=== PATIENT | female | born 1945 | race Caucasian/White ===

== ENCOUNTER → 2016-06-07 | Day surgery (SDC) | payer MEDICARE, OTHER ==
[~2016-06-07] VITALS: Ht 167.6 cm; Wt 60.0 kg
[~2016-06-07] MED LIST: *diphenhydrAMINE HCL 50 MG/ML VIAL PERIprocedural Use ONLY ONE; *morphine SULFATE 8 MG/ML PERIprocedure ONLY ONE; ACETAMINOPHEN 500 MG CPLT PO PRN; ATOR10TA PO; ATOR10TA15 PO; ATROPINE SULFATE 1% OPHT SOLN 2 ML BTL ONE; BALANCED SALT SOLN OPHT IRRIG 15 ML BTL ONE; CHLORHEXIDINE GLUCONATE 2 % 1 PACK (2 CLOTHS) TOPICAL PRN; CYCLOPENTOLATE HCL 1% OPHT SOLN 2 ML BTL ONE; CYMB30CA PO; CYMB60CA PO; DEXAMETHASONE SOD PHOS 4 MG/ML VIAL ONE; DO NOT ADM ANY ANTICOAGULANT DRUGS PRN; EPINEPHrine HCL (1:1000) 1 MG/ML VIAL ONE; ESTR.3 PO; HYDR-3516 PO; HYDR10SO PO; INSULIN HUMAN REGULAR 1,000 UNITS/10 ML VIAL SQ PRN; LACTATED RINGER'S 1000 ML IV PRN; LOMO PO; LOMO2.5T PO; METOPROLOL TARTRATE 25 MG TAB PO PRN; MULTTAB67 PO; ONDANSETRON HCL 4 MG/2 ML VIAL IM PRN; ONDANSETRON HCL 4 MG/2 ML VIAL IV PUSH ONE; PHENYLEPHRINE HCL 2.5% OPTH SOLN 2 ML BTL ONE; POVIDONE IODINE 5% (ANTISEPSIS KIT) 4 APPLICATIONS EACH NARE PRN; PREM1.25 PO; PROPOFOL 200 MG/20 ML AMP IV ONE; SODIUM CHLORID 0.9% 500 ML IV PRN; STERILE WATER FOR INJ 20 ML VIAL ONE; TAB-TAB PO; TOBRAMYCIN/DEXAMETHASONE OPTH OINT 3.5 GM TUBE ONE; TRIAMCINOLONE ACETONIDE/PF 40 MG/ML OPTH VIAL ONE; TROPICAMIDE 1% OPHT SOLN 15 ML BTL ONE; ceFAZolin INJ 1,000 MG VIAL ONE; ePHEDrine/NS 25 MG/5 ML SYR IV ONE; oxyCODONE/ACETAMINOPHEN 5 MG/325 MG TAB PO PRN
[2016-06-07 11:59] VITALS: BP 152/73; PULSE 60; RESP 20; TEMP 98.2; O2SAT 99
[2016-06-07 12:04] LABS: AUTOMATED NEUTROPHIL # 4.1 TH/MM3 (1.8-7.7); BASOPHIL # 0.1 TH/MM3 (0-0.2); EOSINOPHIL # 0.1 TH/MM3 (0-0.4); EOSINOPHIL % 1.5 % (0.0-4.0); HEMATOCRIT 38.5 % (35.0-46.0); HEMO FLAGS DIFF FINAL; LYMPHOCYTE # 1.2 TH/MM3 (1.0-4.8); MEAN CELL VOLUME 91.9 FL (80.0-100.0); MEAN CORPUSCULAR HEMOGLOBIN 31.5 PG (27.0-34.0); MEAN CORPUSCULAR HGB CONC 34.2 % (32.0-36.0); MONO % 10.9 % (0.0-8.0); NEUT % 66.6 % (16.0-70.0); PLATELET COUNT 329 TH/MM3 (150-450); RED BLOOD COUNT 4.19 MIL/MM3 (4.00-5.30); RED CELL DISTRIBUTION WIDTH 13.6 % (11.6-17.2); WHITE BLOOD COUNT 6.2 TH/MM3 (4.0-11.0)
[2016-06-07] MEDS: CYCLOPENTOLATE HCL 1% OPHT SOLN 2 ML BTL RIGHT EYE SCH ×3 (12:16→12:45)
[2016-06-07] MEDS: PHENYLEPHRINE HCL 2.5% OPTH SOLN 2 ML BTL RIGHT EYE SCH ×2 (12:30→12:45)
[2016-06-07] MEDS: TROPICAMIDE 1% OPTH SOLN 2 ML BTL RIGHT EYE SCH ×2 (12:30→12:45)
[2016-06-07] MEDS: ATROPINE SULFATE 1% OPHT SOLN 5 ML BTL RIGHT EYE SCH ×2 (12:30→12:45)
[2016-06-07 16:30] VITALS: BP 149/77; PULSE 59; RESP 16; TEMP 98.3; O2SAT 96
--- NOTE | 2016-06-08 16:22 | EKG ---
Date Performed: 06/07/2016 Time Performed: 11:57:24 PTAGE: 70 years EKG: SINUS BRADYCARDIA POSSIBLE LEFT ATRIAL ENLARGEMENT SEPTAL MYOCARDIAL INFARCTION , OF INDETE RMINATE AGE MODERATE T-WAVE ABNORMALITY, CONSIDER LATERAL ISCHEMIA ABNORMAL ECG PREVIOUS TRACING : 12/02/2014 11.06 DOCTOR: Yudith Giron Interpretating Date/Time 06/08/2016 16:19:54
--- NOTE | 2016-06-12 11:34 | MP ---
cc: SAMUEL WYATT M.D. DATE OF SURGERY: 06/07/2016 PREOPERATIVE DIAGNOSIS Vitreous opacity, some retained Perfluoron liquid, right eye. POSTOPERATIVE DIAGNOSIS Vitreous opacity, some retained Perfluoron liquid, right eye. PROCEDURE Trans pars plana vitrectomy with scatter PRP in the periphery and air-fluid exchange, right eye. SURGEON Dr. Samuel Wyatt ANESTHESIA General laryngeal mask anesthesia. INDICATION Ms. Mcbride is a 70-year-old woman who underwent a retinal detachment repair back in November 2014. Unfortunately a small amount of Perfluoron liquid was left in the eye due to poor visualization during the air-fluid exchange. She initially wanted to wait and see how this affected her vision. She came in this week saying she was ready to have the bubbles removed in her right eye. The risks and benefits of surgery were discussed with the patient. Informed consent was obtained. DETAILS OF PROCEDURE She was brought to [facility] Operating Room-1 and placed on the operating table. Appropriate anesthesia monitoring devices were applied and she was placed under general anesthesia using a laryngeal mask. The right eye was identified as the operative site and then prepped and draped in the usual and sterile fashion. A lid speculum was placed. At this point an appropriate timeout was called with the surgical team agreeing to the planned surgical procedure and surgical site. Using the Christiano 23-gauge vitrectomy system the trocar cannulas were placed 3.5 mm posterior to the limbus after first displacing the conjunctiva. The first one was placed at approximately the 8:45 position and verified to be in the posterior chamber. An infusion cannula was affixed to it and it was turned on. Two additional trocar cannulas were placed at 10 and 2 o'clock. Using a soft-tip linear extrusion needle the Perfluoron bubbles which were currently in the posterior pole when the patient was in the supine position were vacuumed off. Plugs were placed back in the eye and additional scatter PRP was put around the periphery as a precautionary measure. A total of 948 laser spots were delivered with the indirect delivery system with a power of 400 milliwatts and 0.15 second exposure. Partial air-fluid exchange was then done after which the trocar cannulas were removed one by one. A single 7-0 Vicryl suture was used on the superonasal port where it appeared to be leaking some air. The lid speculum was removed. Atropine drops were placed on the cornea. Subconjunctival injections of Ancef 125 mg in 0.5 cc and Decadron 2 mg in 0.5 cc were given at separate sites. The patient was undraped. TobraDex ointment was placed on the cornea and the right eye was patched and shielded. The patient had the laryngeal mass removed in the room and was returned to Recovery in good condition laying on her left side. When awake and alert she can assume a head up position. MD ANAND Dias/LANEY /2:26 PM /11:23 AM
== END | disposition home or self-care (01) ==
LOC: HSDC 10:58
PROVIDERS: ATTEND Ophthalmology
DX: H43.391 Other vitreous opacities, right eye (principal); H44.7 Retained (old) intraocular foreign body, nonmagnetic; R94.31 Abnormal electrocardiogram [ECG] [EKG]
CPT/HCPCS: 00145; 67040; 85025; 93005; J0171; J0690; J1100; J1200; J2270; J2405; J7120; J3300

== ENCOUNTER 2017-07-25 16:28 | Inpatient (IN) | payer MEDICARE, OTHER ==
[2017-07-25] VITALS (8 sets, daily range): BP systolic 132–160; BP diastolic 62–74; PULSE 56–74; RESP 16–20; TEMP 97.7–98.3; O2SAT 98
[~2017-07-25] VITALS: Ht 167.6 cm; Wt 58.2 kg
[~2017-07-25 16:28] MED LIST changes: -*diphenhydrAMINE HCL 50 MG/ML VIAL PERIprocedural Use ONLY ONE; -*morphine SULFATE 8 MG/ML PERIprocedure ONLY ONE; -ACETAMINOPHEN 500 MG CPLT PO PRN; -ATOR10TA PO; -ATOR10TA15 PO; -ATROPINE SULFATE 1% OPHT SOLN 2 ML BTL ONE; -BALANCED SALT SOLN OPHT IRRIG 15 ML BTL ONE; -CHLORHEXIDINE GLUCONATE 2 % 1 PACK (2 CLOTHS) TOPICAL PRN; -CYCLOPENTOLATE HCL 1% OPHT SOLN 2 ML BTL ONE; -CYMB30CA PO; -DEXAMETHASONE SOD PHOS 4 MG/ML VIAL ONE; -DO NOT ADM ANY ANTICOAGULANT DRUGS PRN; -EPINEPHrine HCL (1:1000) 1 MG/ML VIAL ONE; -HYDR10SO PO; -INSULIN HUMAN REGULAR 1,000 UNITS/10 ML VIAL SQ PRN; -LACTATED RINGER'S 1000 ML IV PRN; -LOMO PO; -METOPROLOL TARTRATE 25 MG TAB PO PRN; -ONDANSETRON HCL 4 MG/2 ML VIAL IM PRN; -ONDANSETRON HCL 4 MG/2 ML VIAL IV PUSH ONE; -PHENYLEPHRINE HCL 2.5% OPTH SOLN 2 ML BTL ONE; -POVIDONE IODINE 5% (ANTISEPSIS KIT) 4 APPLICATIONS EACH NARE PRN; -PREM1.25 PO; -PROPOFOL 200 MG/20 ML AMP IV ONE; -SODIUM CHLORID 0.9% 500 ML IV PRN; -STERILE WATER FOR INJ 20 ML VIAL ONE; -TAB-TAB PO; -TOBRAMYCIN/DEXAMETHASONE OPTH OINT 3.5 GM TUBE ONE; -TRIAMCINOLONE ACETONIDE/PF 40 MG/ML OPTH VIAL ONE; -TROPICAMIDE 1% OPHT SOLN 15 ML BTL ONE; -ceFAZolin INJ 1,000 MG VIAL ONE; -ePHEDrine/NS 25 MG/5 ML SYR IV ONE; -oxyCODONE/ACETAMINOPHEN 5 MG/325 MG TAB PO PRN
[2017-07-25] MEDS ORDERED: RANI150T PO (16:48)
[2017-07-25] MEDS ORDERED: SODIUM CHLORID 0.9% 500 ML INJ 500 ML IV ONE (17:00)
--- NOTE | 2017-07-25 17:25 | RADRPT ---
EXAM DATE/TIME: 07/25/2017 17:14 [facility] COMPARISON: No previous studies available for comparison. INDICATIONS : Syncopal episode. RADIATION DOSE: 38.47 CTDIvol (mGy) MEDICAL HISTORY : None SURGICAL HISTORY : None. ENCOUNTER: Initial ACUITY: 1 day PAIN SCALE: 0/10 LOCATION: cranial TECHNIQUE: Multiple contiguous axial images were obtained of the head. Using automated exposure control and adj ustment of the mA and/or kV according to patient size, radiation dose was kept as low as reasonably a chievable to obtain optimal diagnostic quality images. DICOM format image data is available electro nically for review and comparison. FINDINGS: CEREBRUM: Mild diffuse cerebral volume loss. The ventricles are normal for age. No evidence of midline shift, mass lesion, hemorrhage or acute infarction. No extra-axial fluid collections are seen. POSTERIOR FOSSA: The cerebellum and brainstem are intact. The 4th ventricle is midline. The cerebellopontine angle i s unremarkable. EXTRACRANIAL: The visualized portion of the orbits is intact. SKULL: The calvaria is intact. No evidence of skull fracture. CONCLUSION: 1. Senescent changes without acute intracranial abnormality. Singh Lujan MD on July 25, 2017 at 17:22 Board Certified Radiologist. This report was verified electronically.
--- NOTE | 2017-07-25 17:27 | RADRPT ---
EXAM DATE/TIME: 07/25/2017 17:20 [facility] COMPARISON: No previous studies available for comparison. INDICATIONS : Syncopal episode; possible seizure. MEDICAL HISTORY : None. SURGICAL HISTORY : None. ENCOUNTER: Initial ACUITY: 1 day PAIN SCORE: 0/10 LOCATION: Bilateral chest FINDINGS: A single view of the chest demonstrates the lungs to be symmetrically aerated without evidence of mas s, infiltrate or effusion. Hyperaeration bilaterally. The cardiomediastinal contours are unremarkable . Osseous structures are intact. Bilateral calcified breast implants. CONCLUSION: No acute disease. Foster Cuenca MD on July 25, 2017 at 17:25 Board Certified Radiologist. This report was verified electronically.
--- NOTE | 2017-07-25 17:43 | PD ---
HPI Chief Complaint: Seizure Time Seen by Provider: 16:43 Travel History International Travel<30 days: No Contact w/Intl Traveler<30days: No Traveled to known affect area: No History of Present Illness HPI 71-year-old female that presents to the ED via ambulance for evaluation of possible seizure versus syncope. Patient reports that today she was feeling bad and all the sudden she was standing and told her significant other that she was feeling very ill and he had to lay down and her significant other she barely made it to the bed when all of a sudden she clenched her teeth and started not breathing and moving her arms and legs. Apparently patient lost consciousness for some time. Patient had CPR performed by the significant other. Patient returned to normal circulation and breathing spontaneously after this. EVAC was in seen and patient was back to normal consciousness. Patient denies any symptoms at this time other than feeling that her throat is dry in her mouth is clenched. She does complain of some chest discomfort that she had before this happened and after this happened. It was more severe before this happened. Per patient he felt like she has to burp but she could not get it out and then that is the last thing that she remember. She denies any abdominal pain but she does have chronic abdominal pain secondary to IBS and states that this has not changed more frequently. She does have a history of GERD and takes multiple antiacids and took a couple today thinking that this might be related. She does have a history of smoking but denies any history of diabetes or high blood pressure. No fevers chills or sweats. No other medical issues. PFSH Past Medical History Cancer: No Cardiovascular Problems: No Diabetes: No Endocrine: No Gastrointestinal Disorders: Yes (IBS) Genitourinary: Yes (STRESS INCONTENINCE) Hepatitis: No Hiatal Hernia: No Immune Disorder: No Musculoskeletal: Yes (ARTHRITIS) Neurologic: No Psychiatric: Yes (DEPRESSION, CLAUSTRAPHOBIA, ANXIETY) Reproductive: No Respiratory: No Thyroid Disease: No ?: Not Past Surgical History Abdominal Surgery: Yes (APPY) AICD: No Body Medical Devices: BREASTS Gynecologic Surgery: Yes (total hysterectomy) Joint Replacement: No Oral Surgery: Yes (T & A) Pacemaker: No Other Surgery: Yes Social History Alcohol Use: Yes (1 EVENING COCKTAIL) Tobacco Use: Yes Substance Use: Yes (THC) Allergies-Medications (Allergen,Severity, Reaction): Coded Allergies: latex (Unverified Allergy, Severe, RASH, 10/23/16) penicillin G (Unverified Allergy, Severe, HIVES, 10/23/16) Reported Meds & Prescriptions Reported Meds & Active Scripts Active Reported Ranitidine (Ranitidine HCl) 150 Mg Tab Unknown Dose PO DAILY Hydrocodone-Acetaminophen 5-325 mg Tab 1 Tab PO Q6H PRN Premarin (Estrogens Conjugated) 0.3 Mg Tab 2.5 Mg PO DAILY Lomotil (Diphenoxylate-Atropine) 2.5-0.025 Mg Tab 2 Tab PO Q6H PRN Cymbalta DR (Duloxetine HCl) 60 Mg Capdr 60 Mg PO HS Review of Systems Except as stated in HPI: all other systems reviewed are Neg Physical Exam Narrative GENERAL: SKIN: Warm and dry. HEAD: Atraumatic. Normocephalic. EYES: Pupils equal and round. No scleral icterus. No injection or drainage. ENT: No nasal bleeding or discharge. Mucous membranes pink and moist. Tongue is midline. No uvula deviation. NECK: Trachea midline. No JVD. CARDIOVASCULAR: Regular rate and rhythm. No murmurs, S3, S4. RESPIRATORY: No accessory muscle use. Clear to auscultation. Breath sounds equal bilaterally. GASTROINTESTINAL: Abdomen soft, non-tender, nondistended. Hepatic and splenic margins not palpable. MUSCULOSKELETAL: Extremities without clubbing, cyanosis, or edema. No obvious deformities. Full range of motion of the upper and lower extremities bilaterally. 2+ pulses bilaterally. NEUROLOGICAL: Awake and alert. No obvious cranial nerve deficits. Motor grossly within normal limits. Five out of 5 muscle strength in the arms and legs. Normal speech. PSYCHIATRIC: Appropriate mood and affect; insight and judgment normal. Data Data Last Documented VS Vital Signs Date Time Temp Pulse Resp B/P (MAP) Pulse Ox O2 Delivery O2 Flow Rate FiO2 07/25/17 17:30 74 16 148/66 (93) 98 Room Air 07/25/17 16:37 98.3 Orders Orders Electrocardiogram (07/25/17 16:59) Complete Blood Count With Diff (07/25/17 16:59) Comprehensive Metabolic Panel (07/25/17 16:59) Ckmb (Isoenzyme) Profile (07/25/17 16:59) Troponin I (07/25/17 16:59) Prothrombin Time / Inr (Pt) (07/25/17 16:59) Act Partial Throm Time (Ptt) (07/25/17 16:59) Lipase (07/25/17 16:59) Urinalysis - C+S If Indicated (07/25/17 16:59) Magnesium (Mg) (07/25/17 16:59) Thyroid Stimulating Hormone (07/25/17 16:59) Chest, Single Ap (07/25/17 16:59) Ct Brain W/O Iv Contrast(Rout) (07/25/17 16:59) Iv Access Insert/Monitor (07/25/17 16:59) Ecg Monitoring (07/25/17 16:59) Oximetry (07/25/17 16:59) Orthostatic Vital Signs (07/25/17 16:59) Sodium Chlorid 0.9% 500 Ml Inj (Ns 500 M (07/25/17 17:00) Heparin-D5w 25,000 U/250 Ml (Heparin-D5w (07/25/17 20:00) Act Partial Throm Time (Ptt) (07/25/17 18:49) Prothrombin Time / Inr (Pt) (07/25/17 18:49) Cbc No Diff, Includes Plts (07/25/17 18:49) Cbc No Diff, Includes Plts (07/28/17 06:00) Act Partial Throm Time (Ptt) (07/26/17 01:49) Occult Blood (Hemoccult) Stool (07/25/17 18:49) Aspirin (Aspirin) (07/25/17 19:15) Heparin Inj (Heparin Inj) (07/25/17 19:15) Admit Order (Ed Use Only) (07/25/17 19:32) Labs Laboratory Tests Test 07/25/17 17:28 White Blood Count 7.7 TH/MM3 Red Blood Count 3.94 MIL/MM3 Hemoglobin 12.0 GM/DL Hematocrit 36.3 % Mean Corpuscular Volume 92.1 FL Mean Corpuscular Hemoglobin 30.5 PG Mean Corpuscular Hemoglobin Concent 33.1 % Red Cell Distribution Width 13.8 % Platelet Count 318 TH/MM3 Mean Platelet Volume 7.8 FL Neutrophils (%) (Auto) 72.4 % Lymphocytes (%) (Auto) 15.7 % Monocytes (%) (Auto) 9.1 % Eosinophils (%) (Auto) 1.9 % Basophils (%) (Auto) 0.9 % Neutrophils # (Auto) 5.5 TH/MM3 Lymphocytes # (Auto) 1.2 TH/MM3 Monocytes # (Auto) 0.7 TH/MM3 Eosinophils # (Auto) 0.1 TH/MM3 Basophils # (Auto) 0.1 TH/MM3 CBC Comment DIFF FINAL Differential Comment Prothrombin Time 10.0 SEC Prothromb Time International Ratio 1.0 RATIO Activated Partial Thromboplast Time 24.3 SEC Blood Urea Nitrogen 24 MG/DL Creatinine 1.16 MG/DL Random Glucose 95 MG/DL Total Protein 6.6 GM/DL Albumin 3.1 GM/DL Calcium Level 8.2 MG/DL Magnesium Level 1.7 MG/DL Alkaline Phosphatase 89 U/L Aspartate Amino Transf (AST/SGOT) 30 U/L Alanine Aminotransferase (ALT/SGPT) 22 U/L Total Bilirubin 0.4 MG/DL Sodium Level 137 MEQ/L Potassium Level 3.9 MEQ/L Chloride Level 101 MEQ/L Carbon Dioxide Level 29.3 MEQ/L Anion Gap 7 MEQ/L Estimat Glomerular Filtration Rate 46 ML/MIN Total Creatine Kinase 77 U/L Troponin I 0.22 NG/ML Lipase 97 U/L Thyroid Stimulating Hormone 3rd Gen 5.560 uIU/ML MDM Medical Decision Making Medical Screen Exam Complete: Yes Emergency Medical Condition: Yes Medical Record Reviewed: Yes Interpretation(s) CBC & BMP Diagram 07/25/17 17:28 Total Protein 6.6, Albumin 3.1 L, Calcium Level 8.2 L, Magnesium Level 1.7, Alkaline Phosphatase 89, Aspartate Amino Transf (AST/SGOT) 30, Alanine Aminotransferase (ALT/SGPT) 22, Total Bilirubin 0.[address] 07/25/171658 Signed Impressions: Service Date/Time: July 17:14 - CONCLUSION: 1. Senescent changes without acute intracranial abnormality. Singh Lujan MD Chest X-Ray 07/25/171658 Signed Impressions: Service Date/Time: July 17:20 - CONCLUSION: No acute disease. Foster Cuenca MD EKG did show some changes concerning for ischemic changes in V6 V5 and V3 read by me and my attending. No ST elevation however. Troponin of 0.22 CK-MB negative. Differential Diagnosis Syncope versus seizure versus cardiac syncope versus chest pain versus ACS versus CVA Narrative Course 71-year-old female that presents to the ED for evaluation of syncope versus seizure. Patient was properly examined and was found to have signs and symptoms concerning for syncope versus seizure. Definetly concerned for cardiac. Labs and imaging were ordered. Patient took an aspirin today. Patient completely symptomatic at this time. She did complain that she initially had some soreness to her chest after the episode but that has gone away now. She states that she feels like her jaw is clenched and she feels very dry. Deafly concern for ACS. Labs and imaging order. EKG and labs showed positive troponin and some concerning EKG findings. Patient was started on heparin. My attending Dr. Wallis spoke with the patient and agrees that at this time no emergent cath is necessary. She spoke herself with Dr. Brian who recommends admission to the [facility] and Tomorrow. Patient is completely asymptomatic and has been asymptomatic since being here in the ED. She has no chest pain. She does state that she took an aspirin today. She cannot really tell me she took a full aspirin or not that she was given a full aspirin here. Case discussed with Dr. Schaefer who agrees to admission. Patient agrees with admission. Diagnosis Primary Impression: NSTEMI (non-ST elevated myocardial infarction) Additional Impression: Syncope, near Admitting Information Admitting Physician Requests: Admit Joseph Irizarry July 25, 2017 17:43
[2017-07-25 18:05] LABS: AUTOMATED NEUTROPHIL # 5.5 TH/MM3 (1.8-7.7); BASOPHIL # 0.1 TH/MM3 (0-0.2); BASOPHIL % 0.9 % (0.0-2.0); EOSINOPHIL # 0.1 TH/MM3 (0-0.4); EOSINOPHIL % 1.9 % (0.0-4.0); HEMATOCRIT 36.3 % (35.0-46.0); LYMPH % 15.7 % (9.0-44.0); LYMPHOCYTE # 1.2 TH/MM3 (1.0-4.8); MEAN CELL VOLUME 92.1 FL (80.0-100.0); MEAN CORPUSCULAR HEMOGLOBIN 30.5 PG (27.0-34.0); MEAN CORPUSCULAR HGB CONC 33.1 % (32.0-36.0); MEAN PLATELET VOLUME 7.8 FL (7.0-11.0); MONO % 9.1 % (0.0-8.0); MONOCYTE # 0.7 TH/MM3 (0-0.9); NEUT % 72.4 % (16.0-70.0); PLATELET COUNT 318 TH/MM3 (150-450); RED BLOOD COUNT 3.94 MIL/MM3 (4.00-5.30); RED CELL DISTRIBUTION WIDTH 13.8 % (11.6-17.2); WHITE BLOOD COUNT 7.7 TH/MM3 (4.0-11.0)
[2017-07-25 18:30] LABS: ALBUMIN 3.1 GM/DL (3.4-5.0); ALT (GPT) 22 U/L (10-53); AST (GOT) 30 U/L (15-37); BICARBONATE 29.3 MEQ/L (21.0-32.0); BLOOD UREA NITROGEN 24 MG/DL (7-18); CALCIUM 8.2 MG/DL (8.5-10.1); CHLORIDE 101 MEQ/L (98-107); CREATININE 1.16 MG/DL (0.50-1.00); GLOMERULAR FILTRATION RATE 46 ML/MIN (>89); GLUCOSE,RANDOM 95 MG/DL (74-106); MAGNESIUM 1.7 MG/DL (1.5-2.5); SODIUM (NA) 137 MEQ/L (136-145)
[2017-07-25 18:40] LABS: ALKALINE PHOSPHATASE 89 U/L (45-117); TOTAL BILIRUBIN ADULT 0.4 MG/DL (0.2-1.0); TOTAL PROTEIN 6.6 GM/DL (6.4-8.2); TROPONIN I 0.22 NG/ML (0.02-0.05)
--- NOTE | 2017-07-25 19:08 | PD ---
Data Data Last Documented VS Vital Signs Date Time Temp Pulse Resp B/P (MAP) Pulse Ox O2 Delivery O2 Flow Rate FiO2 07/25/17 17:30 74 16 148/66 (93) 98 Room Air 07/25/17 16:37 98.3 Orders Orders Electrocardiogram (07/25/17 16:59) Complete Blood Count With Diff (07/25/17 16:59) Comprehensive Metabolic Panel (07/25/17 16:59) Ckmb (Isoenzyme) Profile (07/25/17 16:59) Troponin I (07/25/17 16:59) Prothrombin Time / Inr (Pt) (07/25/17 16:59) Act Partial Throm Time (Ptt) (07/25/17 16:59) Lipase (07/25/17 16:59) Urinalysis - C+S If Indicated (07/25/17 16:59) Magnesium (Mg) (07/25/17 16:59) Thyroid Stimulating Hormone (07/25/17 16:59) Chest, Single Ap (07/25/17 16:59) Ct Brain W/O Iv Contrast(Rout) (07/25/17 16:59) Iv Access Insert/Monitor (07/25/17 16:59) Ecg Monitoring (07/25/17 16:59) Oximetry (07/25/17 16:59) Orthostatic Vital Signs (07/25/17 16:59) Sodium Chlorid 0.9% 500 Ml Inj (Ns 500 M (07/25/17 17:00) Heparin-D5w 25,000 U/250 Ml (Heparin-D5w (07/25/17 19:00) Act Partial Throm Time (Ptt) (07/25/17 18:49) Prothrombin Time / Inr (Pt) (07/25/17 18:49) Cbc No Diff, Includes Plts (07/25/17 18:49) Cbc No Diff, Includes Plts (07/28/17 06:00) Act Partial Throm Time (Ptt) (07/26/17 01:49) Occult Blood (Hemoccult) Stool (07/25/17 18:49) Aspirin (Aspirin) (07/25/17 19:15) Heparin Inj (Heparin Inj) (07/25/17 19:15) Labs Laboratory Tests Test 07/25/17 17:28 White Blood Count 7.7 TH/MM3 Red Blood Count 3.94 MIL/MM3 Hemoglobin 12.0 GM/DL Hematocrit 36.3 % Mean Corpuscular Volume 92.1 FL Mean Corpuscular Hemoglobin 30.5 PG Mean Corpuscular Hemoglobin Concent 33.1 % Red Cell Distribution Width 13.8 % Platelet Count 318 TH/MM3 Mean Platelet Volume 7.8 FL Neutrophils (%) (Auto) 72.4 % Lymphocytes (%) (Auto) 15.7 % Monocytes (%) (Auto) 9.1 % Eosinophils (%) (Auto) 1.9 % Basophils (%) (Auto) 0.9 % Neutrophils # (Auto) 5.5 TH/MM3 Lymphocytes # (Auto) 1.2 TH/MM3 Monocytes # (Auto) 0.7 TH/MM3 Eosinophils # (Auto) 0.1 TH/MM3 Basophils # (Auto) 0.1 TH/MM3 CBC Comment DIFF FINAL Differential Comment Prothrombin Time 10.0 SEC Prothromb Time International Ratio 1.0 RATIO Activated Partial Thromboplast Time 24.3 SEC Blood Urea Nitrogen 24 MG/DL Creatinine 1.16 MG/DL Random Glucose 95 MG/DL Total Protein 6.6 GM/DL Albumin 3.1 GM/DL Calcium Level 8.2 MG/DL Magnesium Level 1.7 MG/DL Alkaline Phosphatase 89 U/L Aspartate Amino Transf (AST/SGOT) 30 U/L Alanine Aminotransferase (ALT/SGPT) 22 U/L Total Bilirubin 0.4 MG/DL Sodium Level 137 MEQ/L Potassium Level 3.9 MEQ/L Chloride Level 101 MEQ/L Carbon Dioxide Level 29.3 MEQ/L Anion Gap 7 MEQ/L Estimat Glomerular Filtration Rate 46 ML/MIN Total Creatine Kinase 77 U/L Troponin I 0.22 NG/ML Lipase 97 U/L Thyroid Stimulating Hormone 3rd Gen 5.560 uIU/ML MDM Supervised Visit with MARCELLE: Yes Narrative Course The history, exam, and medical decision-making in the associated midlevel provider note were completed with my assistance. I reviewed and agree with the findings presented. I attest that I had a [id number] encounter with the patient on the same day, and personally performed and documented my assessment and findings in the medical record. *My assessment and Findings: This is a 71-year-old female who presents to the emergency department having had an episode of syncope which was preceded by chest discomfort described as indigestion. Ultimately her and 5 minutes of CPR and her prior to her regaining consciousness. EKG demonstrates borderline ST segment elevation in V3, V5 and V6 with some ST depression in the inferior leads. The T waves are biphasic suggesting ischemia and evolving EKG changes. Currently she is completely asymptomatic. She has no chest pain, no shortness of breath, nausea or diaphoresis. She says she feels back to normal. Her troponin is 0.22. My concern is that she has had a myocardial infarction and potentially had a ventricular arrhythmia. She was given IV heparin. She took 325 of aspirin this morning. I discussed the case with Dr. Montalvo's and given the patient is not having active chest pain there is no indication for emergent cath. Patient will be admitted, placed on heparin and cardiology will be consulted. Devika Wallis MD July 25, 2017 19:08
[2017-07-25] MEDS ORDERED: ASPIRIN 325 MG TAB PO ONE (19:15)
[2017-07-25] MEDS ORDERED: HEPARIN SODIUM - IV 10,000 UNITS/10 ML VIAL IV PUSH ONE (19:15)
[2017-07-25] MEDS ORDERED: HEPARIN-D5W 25,000 U/250 ML 250 ML IV PRN (20:00)
[2017-07-25] MEDS ORDERED: SODIUM CHLORIDE 0.9% FLUSH 10 ML FLUSH IV FLUSH PRN (21:45)
--- NOTE | 2017-07-25 21:59 | HHI.HP ---
HPI [facility] Primary Care Physician Marcelo Alexanedr M.D. Admission Diagnosis NSTEMI, syncope Diagnoses: Travel History International Travel<30 Days: No Contact w/Intl Traveler <30 Da: No Traveled to Known Affected Are: No History of Present Illness 71-year-old female with past medical history significant for osteoarthritis, chronic pain and depression/anxiety presents the emergency department for the evaluation of a syncopal episode with seizure-like activity. The patient reports earlier today she had some chest pain and she took an aspirin and a Prilosec because she was unsure if it was cardiac or GERD. She states she did not feel better and was walking to lay down when she suddenly collapsed. Her partner was following her and he states that her head "snapped backwards" her jaw locked and she had loss of bladder continence. The partner states that he could not find a heartbeat and he performed CPR for an unknown amount of time. He continued CPR until EMS arrived. Upon their arrival, EMS reports that the patient was conscious and talking. Patient denies any associated shortness of breath. She denies abdominal pain. No nausea/vomiting/diarrhea. No lateralizing signs/symptoms. Review of Systems Except as stated in HPI: all other systems reviewed are Neg Past Family Social History Past Medical History Osteoarthritis Depression/anxiety Chronic pain Past Surgical History Hysterectomy Appendectomy Right hand surgery Retinal repair Reported Medications Reported Meds & Active Scripts Active Reported Ranitidine (Ranitidine HCl) 150 Mg Tab Unknown Dose PO DAILY Hydrocodone-Acetaminophen 5-325 mg Tab 1 Tab PO Q6H PRN Premarin (Estrogens Conjugated) 0.3 Mg Tab 2.5 Mg PO DAILY Lomotil (Diphenoxylate-Atropine) 2.5-0.025 Mg Tab 2 Tab PO Q6H PRN Cymbalta DR (Duloxetine HCl) 60 Mg Capdr 60 Mg PO HS Allergies: Coded Allergies: latex (Unverified Allergy, Severe, RASH, 10/23/16) penicillin G (Unverified Allergy, Severe, HIVES, 10/23/16) Family History Negative for CAD/DM Social History Smokes approximately 1 pack per day. Occasional alcohol. Denies illicit drugs. Physical Exam Vital Signs Vital Signs Date Time Temp Pulse Resp B/P (MAP) Pulse Ox O2 Delivery O2 Flow Rate FiO2 07/25/17 21:00 58 20 144/69 (94) 98 Room Air 07/25/17 20:00 66 20 146/69 (94) 98 Room Air 07/25/17 19:00 70 20 136/66 (89) 98 07/25/17 17:30 74 16 148/66 (93) 98 Room Air 07/25/17 16:37 98.3 74 17 160/74 (102) 98 Physical Exam GENERAL: female sitting up in bed SKIN: No rashes, ecchymoses or lesions. Cool and dry. HEAD: Atraumatic. Normocephalic. No temporal or scalp tenderness. EYES: Pupils equal round and reactive. Extraocular motions intact. No scleral icterus. No injection or drainage. ENT: Nose without bleeding, purulent drainage or septal hematoma. Throat without erythema, tonsillar hypertrophy or exudate. Uvula midline. Airway patent. NECK: Trachea midline. No JVD or lymphadenopathy. Supple, nontender, no meningeal signs. CARDIOVASCULAR: Regular rate and rhythm without murmurs, gallops, or rubs. RESPIRATORY: Clear to auscultation. Breath sounds equal bilaterally. No wheezes , rales, or rhonchi. GASTROINTESTINAL: Abdomen soft, non-tender, nondistended. No hepato-splenomegaly , or palpable masses. No guarding. MUSCULOSKELETAL: Extremities without clubbing, cyanosis, or edema. No joint tenderness, effusion, or edema noted. No calf tenderness. NEUROLOGICAL: Awake and alert. Cranial nerves II through XII intact. Motor and sensory grossly within normal limits. Normal speech. Laboratory Laboratory Tests Test 07/25/17 17:28 White Blood Count 7.7 Red Blood Count 3.94 Hemoglobin 12.0 Hematocrit 36.3 Mean Corpuscular Volume 92.1 Mean Corpuscular Hemoglobin 30.5 Mean Corpuscular Hemoglobin Concent 33.1 Red Cell Distribution Width 13.8 Platelet Count 318 Mean Platelet Volume 7.8 Neutrophils (%) (Auto) 72.4 Lymphocytes (%) (Auto) 15.7 Monocytes (%) (Auto) 9.1 Eosinophils (%) (Auto) 1.9 Basophils (%) (Auto) 0.9 Neutrophils # (Auto) 5.5 Lymphocytes # (Auto) 1.2 Monocytes # (Auto) 0.7 Eosinophils # (Auto) 0.1 Basophils # (Auto) 0.1 CBC Comment DIFF FINAL Differential Comment Prothrombin Time 10.0 Prothromb Time International Ratio 1.0 Activated Partial Thromboplast Time 24.3 Blood Urea Nitrogen 24 Creatinine 1.16 Random Glucose 95 Total Protein 6.6 Albumin 3.1 Calcium Level 8.2 Magnesium Level 1.7 Alkaline Phosphatase 89 Aspartate Amino Transf (AST/SGOT) 30 Alanine Aminotransferase (ALT/SGPT) 22 Total Bilirubin 0.4 Sodium Level 137 Potassium Level 3.9 Chloride Level 101 Carbon Dioxide Level 29.3 Anion Gap 7 Estimat Glomerular Filtration Rate 46 Total Creatine Kinase 77 Troponin I 0.22 Lipase 97 Thyroid Stimulating Hormone 3rd Gen 5.560 Result Diagram: 07/25/17 1728 07/25/178 Caprini VTE Risk Assessment Caprini VTE Risk Assessment: Mod/High Risk (score >= 2) Caprini Risk Assessment Model Point Value = 1 Point Value = 2 Point Value = 3 Point Value = 5 Age 41-60 Minor surgery BMI > 25 kg/m2 Swollen legs Varicose veins or History of unexplained or recurrent spontaneous Oral contraceptives or hormone replacement Sepsis (< 1 month) Serious lung disease, including pneumonia (< 1 month) Abnormal pulmonary function Acute myocardial infarction Congestive heart failure (< 1 month) History of inflammatory bowel disease Medical patient at bed rest Age 61-74 Arthroscopic surgery Major open surgery (> 45 min) Laparoscopic surgery (> 45 min) Malignancy Confined to bed (> 72 hours) Immobilizing plaster cast Central venous access Age >= 75 History of VTE Family history of VTE Factor V Leiden Prothrombin [id number] Lupus anticoagulant Anticardiolipin antibodies Elevated serum homocysteine Heparin-induced thrombocytopenia Other congenital or acquired thrombophilia Stroke (< 1 month) Elective arthroplasty Hip, pelvis, or leg fracture Acute spinal cord injury (< 1 month) Prophylaxis Regimen Total Risk Factor Score Risk Level Prophylaxis Regimen 0-1 Low Early ambulation 2 Moderate Order ONE of the following: *Sequential Compression Device (SCD) *Heparin 5000 units SQ BID 3-4 Higher Order ONE of the following medications: *Heparin 5000 units SQ TID *Enoxaparin/Lovenox 40 mg SQ daily (WT < 150 kg, CrCl > 30 mL/min) *Enoxaparin/Lovenox 30 mg SQ daily (WT < 150 kg, CrCl > 10-29 mL/min) *Enoxaparin/Lovenox 30 mg SQ BID (WT < 150 kg, CrCl > 30 mL/min) AND/OR *Sequential Compression Device (SCD) 5 or more Highest Order ONE of the following medications: *Heparin 5000 units SQ TID (Preferred with Epidurals) *Enoxaparin/Lovenox 40 mg SQ daily (WT < 150 kg, CrCl > 30 mL/min) *Enoxaparin/Lovenox 30 mg SQ daily (WT < 150 kg, CrCl > 10-29 mL/min) *Enoxaparin/Lovenox 30 mg SQ BID (WT < 150 kg, CrCl > 30 mL/min) AND *Sequential Compression Device (SCD) Assessment and Plan Assessment and Plan Assessment/plan: 1. NSTEMI Patient reports history of chest pain EKG with possible ischemic changes in V2 and V3 and T-wave inversion in V1 through V6, personally reviewed Initial troponin 0 0.22 Heparin bolus and drip Serial troponins/EKGs Cardiology consulted, appreciate recommendations Aspirin Morphine/nitro 2. Depression/anxiety Continue home Cymbalta 3. Chronic pain Continue home hydrocodone FEN NPO Electrolytes: monitor and replete prn Heparin ggt Physician Certification 2 Midnight Certification Type: Admission for Inpatient Services Order for Inpatient Services The services are ordered in accordance with Medicare regulations or non- Medicare payer requirements, as applicable. In the case of services not specified as inpatient-only, they are appropriately provided as inpatient services in accordance with the 2-midnight benchmark. Estimated LOS (days): 2 2 days is the estimated time the patient will need to remain in the hospital, assuming treatment plan goals are met and no additional complications. Post-Hospital Plan: Not yet determined Eleanor Schaefer MD July 25, 2017 21:59
[2017-07-26] VITALS (21 sets, daily range): BP systolic 139–162; BP diastolic 65–82; PULSE 54–72; RESP 16–22; TEMP 97.8–98.6; O2SAT 96–100
[2017-07-26 01:47] LABS: TROPONIN I 0.4 NG/ML (0.02-0.05)
[2017-07-26] MEDS: MORPHINE SULFATE 4 MG/ML INJ IV PUSH PRN ×3 (03:52→11:51)
[2017-07-26] MEDS: NITROGLYCERIN 0.4 MG SL 25 TABS/BTL SL PRN ×2 (04:15→04:23)
[2017-07-26 07:50] LABS: TROPONIN I 0.26 NG/ML (0.02-0.05)
[2017-07-26] MEDS ORDERED: SODIUM CHLORIDE 0.9% FLUSH 10 ML FLUSH IV FLUSH SCH (09:00)
[2017-07-26] MEDS ORDERED: ASPIRIN EC 325 MG TABEC PO SCH (09:00)
[2017-07-26] MEDS: ACETAMINOPHEN/HYDROcodone 325 MG/5 MG TAB PO PRN ×3 (09:03→23:14)
[2017-07-26] MEDS ORDERED: MIDAZOLAM HCL 2 MG/2 ML VIAL ONE (12:32)
[2017-07-26] MEDS ORDERED: HEPARIN-NS/PF INJ 1,000 ML ONE (12:32)
[2017-07-26] MEDS ORDERED: VERAPAMIL HCL 5 MG/2 ML VIAL ONE (12:32)
[2017-07-26] MEDS ORDERED: HEPARIN SODIUM - IV 10,000 UNITS/10 ML VIAL ONE (12:33)
[2017-07-26] MEDS ORDERED: NITROGLYCERIN INJ 5 ML ONE (12:33)
[2017-07-26] MEDS ORDERED: TICAGRELOR 90 MG TAB PO ONE (13:39)
[2017-07-26] MEDS ORDERED: ASPIRIN 81 MG CHEW TAB ONE (13:42)
[2017-07-26] MEDS ORDERED: ACETAMINOPHEN 325 MG TAB PO PRN (14:00)
[2017-07-26] MEDS ORDERED: MISC INFORMATION XX ONE (14:00)
--- NOTE | 2017-07-26 14:24 | EKG ---
Date Performed: 07/26/2017 Time Performed: 04:35:54 PTAGE: 71 years EKG: Sinus bradycardia Prolonged QT interval Extensive T wave changes suggest myocardial infarct Abnormal ECG PREVIOUS TRACING : 07/25/2017 23.29 Since the previous tracing, no significant change noted DOCTOR: Waqas Khan Interpretating Date/Time 07/26/2017 14:23:25
--- NOTE | 2017-07-26 14:25 | EKG ---
Date Performed: 07/25/2017 Time Performed: 23:29:14 PTAGE: 71 years EKG: Sinus rhythm Prolonged QT interval Anterolateral T wave changes may be due to myocardial ischemia Abnormal ECG PREVIOUS TRACING : 07/25/2017 21.00 Since the previous tracing, no significant change noted DOCTOR: Waqas Khan Interpretating Date/Time 07/26/2017 14:24:27
--- NOTE | 2017-07-26 14:27 | EKG ---
Date Performed: 07/25/2017 Time Performed: 21:00:32 PTAGE: 71 years EKG: SINUS BRADYCARDIA MODERATE T-WAVE ABNORMALITY, CONSIDER LATERAL ISCHEMIA ABNORMAL ECG PREVIOUS TRACING 07/25/2017 17.57 DOCTOR: Waqas Khan Interpretating Date/Time 07/26/2017 14:25:43
--- NOTE | 2017-07-26 14:27 | EKG ---
Date Performed: 07/25/2017 Time Performed: 17:57:24 PTAGE: 71 years EKG: Sinus rhythm MODERATE T-WAVE ABNORMALITY, CONSIDER LATERAL ISCHEMIA ABNORMAL ECG INTERPRETATION BASED ON A DEFAUL T AGE OF 40 YEARS PREVIOUS TRACING : 07/25/2017 17.56 Since the previous tracing, no significant change not ed DOCTOR: Waqas Khan Interpretating Date/Time 07/26/2017 14:26:10
[2017-07-26] MEDS ORDERED: MORPHINE SULFATE 2 MG/ML SYRINGE ONE (14:51)
[2017-07-26] MEDS ORDERED: MORPHINE SULFATE 4 MG/ML INJ IV ONE (15:00)
--- NOTE | 2017-07-26 17:28 | MG ---
cc: Vern Fournier MD, Mandeep MD EEG RECORD [id number] INTERPRETATION: 7-9 Hz posterior rhythm 5-15 microvolts. Good EEG variability reactivity. Good anterior to posterior gradient. Some eye movement artifact. Background slowing increased theta and occasional delta suggestive of drowsy state and stage I sleep. Reduced driving with photic stimulation. Single lead EKG showing sinus rhythm. IMPRESSION: Normal awake sleep electroencephalogram with slightly low-amplitude. Clinical correlation. MD JONNY Holland/ , 05:09 PM , 05:27 PM
--- NOTE | 2017-07-26 19:16 | HHI.PR ---
Subjective Remarks Going for heart cath Objective Vitals Vital Signs Date Time Temp Pulse Resp B/P (MAP) Pulse Ox O2 Delivery O2 Flow Rate FiO2 07/26/17 18:00 62 07/26/17 17:06 100 Nasal Cannula 2.00 07/26/17 17:00 64 07/26/17 16:08 14 07/26/17 16:00 68 07/26/17 16:00 98.1 65 18 146/65 (92) 100 07/26/17 15:49 16 07/26/17 15:00 54 07/26/17 14:00 56 07/26/17 12:04 16 07/26/17 12:00 97.9 56 20 139/79 (99) 100 07/26/17 12:00 57 07/26/17 11:00 54 07/26/17 11:00 54 07/26/17 10:00 58 07/26/17 10:00 58 07/26/17 09:00 56 07/26/17 08:00 97.8 60 20 145/77 (99) 100 07/26/17 08:00 59 07/26/17 07:00 56 07/26/17 03:30 98.6 61 16 148/82 (104) 97 07/26/17 02:00 56 07/26/17 01:00 58 07/26/17 00:14 98.1 59 16 141/72 (95) 96 07/26/17 00:00 58 07/25/17 23:00 62 07/25/17 22:30 97.7 56 16 132/62 (85) 98 07/25/17 22:30 56 07/25/17 21:47 98 07/25/17 21:00 58 20 144/69 (94) 98 Room Air 07/25/17 20:00 66 20 146/69 (94) 98 Room Air I/O 07/25/17 07/25/17 07/25/17 07/26/17 07/26/17 07/26/17 07:00 15:00 23:00 07:00 15:00 23:00 Intake Total 500 ml 56 ml 980 ml Output Total 700 ml Balance 500 ml -644 ml 980 ml Intake Oral 0 ml 480 ml IV Total 500 ml 56 ml 500 ml Output Urine Total 700 ml # Voids 3 # Bowel Movements 0 Result Diagram: 07/25/17 1728 07/25/17 1728 Objective Remarks GENERAL: This is a well-nourished, well-developed patient, in no apparent distress. CARDIOVASCULAR: RRR, no gallops, or rubs. RESPIRATORY: Fair air entry bilaterally. No W, R, or R GASTROINTESTINAL: Abdomen soft, non-tender, nondistended. Positive bowel sounds MUSCULOSKELETAL: Extremities without clubbing, cyanosis, or edema. Pedal pulses appreciated NEUROLOGICAL: Awake and alert. Moves all extremity. Normal speech.no focal neurological deficit A/P Assessment and Plan 07/26 going for heart cath today, monitor under telemetry postop, CBC BMP in a.m. 1. NSTEMI Patient reports history of chest pain EKG with possible ischemic changes in V2 and V3 and T-wave inversion in V1 through V6, personally reviewed Initial troponin 0 0.22 Heparin bolus and drip Serial troponins/EKGs Cardiology consulted, appreciate recommendations Aspirin Morphine/nitro 2. Depression/anxiety Continue home Cymbalta 3. Chronic pain Continue home hydrocodone FEN NPO Electrolytes: monitor and replete prn Amanda Wynne MD July 26, 2017 19:16
[2017-07-26] MEDS: DULoxetine HCl DR 60 MG CAP PO SCH (19:44)
[2017-07-26] MEDS: ATORVASTATIN 80 MG TAB PO SCH (19:45)
[2017-07-26] MEDS: TICAGRELOR 90 MG TAB PO SCH (19:45)
--- NOTE | 2017-07-26 20:34 | MB ---
cc: Joe Allen Vincent G DO DATE: 07/26/2017 REASON FOR CONSULTATION: Abnormal EKG, chest pain, N-STEMI. HISTORY OF PRESENT ILLNESS: Fallon Mcbride is a pleasant 71-year-old female who presented to [facility] Emergency Room on 07/25/2017 due to chest pain with possible syncopal episode. Apparently, the patient started noticing some pain in her lower sternal area, possibly epigastrically, and she was not sure if it was her heart or her previous reflux and so she took an aspirin and Prilosec. She states that she did not feel any better and was walking to lie down and apparently she suddenly collapsed. The next thing that she remembers she was surrounded by a bunch of people. According to her significant other, she collapsed and her head snapped back and her jaw locked and she had loss of bladder continence. Unsure if there was any seizure-like activity. He could not find a heartbeat and so he performed CPR for an unknown amount of time. EMS arrived and I guess, when EMS arrived, the patient was conscious and talking. In seeing her this morning, she has had some repeat pain throughout that lower sternal area. PAST MEDICAL HISTORY: 1. Osteoarthritis. 2. Depression/anxiety. 3. Chronic pain. PAST SURGICAL HISTORY: 1. Hysterectomy. 2. Appendectomy. 3. Right hand surgery. 4. Retinal repair. ALLERGIES: 1. LATEX. 2. PENICILLIN. MEDICATIONS: 1. Hydrocodone/acetaminophen 5/325 every 6 hours as needed for pain. 2. Cymbalta 60 mg every night. 3. Lomotil 2 tabs every 6 hours as needed for diarrhea. 4. Ranitidine 150 mg daily. 5. Premarin 2.5 mg daily. FAMILY HISTORY: Denies premature coronary artery disease or sudden cardiac within the family. SOCIAL HISTORY: Smokes 1 pack a day for a number of years. Occasionally drinks alcohol. Denies drug abuse. REVIEW OF SYSTEMS: Fourteen systems are reviewed including osteopathic. Pertinent positives and negatives as above, otherwise negative. PHYSICAL EXAMINATION: VITAL SIGNS: Temperature 97.8, heart rate 60, blood pressure 145/77, respirations 20, pulse oximetry 100% on room air. GENERAL: The patient appears well in no acute distress, alert, awake and oriented x3. HEENT: Extraocular muscles intact. Mucous membranes moist. NECK: Supple. No JVD at 45 degrees. No carotid bruits heard bilaterally. Carotid upstroke is brisk in nature. HEART: Regular rate and rhythm. Positive first and second heart sounds with no noted murmurs, gallops or rubs. LUNGS: Clear to auscultation bilaterally. No wheezes, rales or rhonchi. ABDOMEN: Soft, nontender, nondistended. No organomegaly noted. EXTREMITIES: Show no clubbing, cyanosis or edema. Femoral and distal pulses intact bilaterally. NEUROLOGIC: No focal deficits. SKIN: Warm, dry and intact. OSTEOPATHIC: No kyphoscoliosis, lordosis or paraspinal tender points. LABORATORY DATA: Hemoglobin 12.0, hematocrit 36.3, platelets 318. Potassium 3.9, BUN 24, creatinine 1.16. Troponin 0.40. CARDIOLOGY STUDIES: Electrocardiogram (07/26/2017 at 0435): Sinus bradycardia, prolonged QT interval, extensive T-wave changes anterolaterally consistent with ischemia. IMPRESSION: 1. Chest pain concerning for coronary insufficiency. 2. [id number]-RK-qukqhlynn myocardial infarction. 3. Possible aborted sudden cardiac . 4. Possible seizure. 6. Significantly abnormal electrocardiogram with deep T-wave inversions concerning for anterior ischemia. RECOMMENDATIONS: 1. Fallon mcbride had chest pain, a syncopal episode, which she may have lost pulses, possibly an aborted sudden cardiac , and electrocardiogram with significant abnormalities with deep T-wave inversions concerning for ischemia. She also had a mildly elevated troponin. Because of all of this, she will be recommended cardiac catheterization. 2. Risks, benefits, and alternatives have been discussed with her and she consents as such. 3. We will check a 2-Dimensional echocardiogram to look at her overall left ventricular function, cardiac structure and possible valvulopathies. 4. It is unsure at this time what exactly happened during her event and, although this possibly has neurological undertones with seizure-like activity that could have also happened with aborted sudden cardiac , for now we will work her up from a cardiovascular standpoint. If no cardiovascular cause is found, consideration of looking into possible neurological causes. 5. Further recommendations will be made based on coronary visualization. Thank you for allowing me to see Fallon Mcbride. If there are any questions, please do not hesitate to call. DO ANGÉLICA Jaimes/ , 07:13 PM , 08:34 PM
[2017-07-27] VITALS (26 sets, daily range): BP systolic 124–166; BP diastolic 70–90; PULSE 53–78; RESP 18–22; TEMP 98–98.7; O2SAT 94–99
--- NOTE | 2017-07-27 02:10 | MA ---
cc: Joe Allen DO DATE: 07/26/2017 DATE OF PROCEDURE: 07/26/2017. PROCEDURE: Left heart catheterization, coronary angiogram, moderate sedation 30 minutes, Abelardo drug-eluting stent (3 x 15) to the LAD. PREPROCEDURE DIAGNOSIS: [id number]-[id number] myocardial infarction, EKG changes concerning for ischemia, chest pain, possible aborted sudden cardiac . POSTPROCEDURE DIAGNOSIS: Taq-OF-[id number] myocardial infarction, status post [place] drug-eluting stent (3 x 15) to the LAD. MEDICATIONS: Versed 0.5 mg, fentanyl 25 mcg, heparin 5800 units, nitro 200 mcg, aspirin 81 mg, Brilinta 180 mg. CONTRAST USED: 120 mL. FLUOROSCOPY: 6.2 minutes. MODERATE SEDATION: 30 minutes. FRAILTY SCORE: 3. ESTIMATED BLOOD LOSS: 10 mL. PROCEDURAL SUMMARY: Fallon Mcbride is a pleasant 71-year-old female who presented to [facility] after having chest pain and a syncopal episode. During her episode of syncope it was difficult to tell, per her significant other, if she had a pulse, and CPR was started. This may represent an aborted sudden cardiac . She was also found to have an elevated troponin. Because of this, she was recommended cardiac catheterization. Risks, benefits and alternatives were explained to her and she consented as such. She was brought to the lab and prepped in the usual sterile fashion. The right radial artery was accessed using modified Seldinger technique and placement of a 5/6-Uzbek slender sheath. This was easily aspirated and flushed. A JR4 was advanced over a J-wire to the ascending aorta and across the aortic valve for measurement of left ventricular pressure. This was pulled back across the aortic valve, showing no significant gradient of aortic stenosis. JR4 was used for selective angiography of the right coronary artery system. This was exchanged out for a JL3.5, which was used for selective angiography of the left coronary artery system. Please see notes below for intervention. FINDINGS: LEFT MAIN: Normal-sized vessel with no significant disease. It bifurcates into an LAD and circumflex. LEFT ANTERIOR DESCENDING: Moderate- to large-sized vessel. Mid portion, there is an 80-90 percent lesion. Distal to this, the vessel is overall tortuous, but no disease. It gives off 1 major diagonal, which is tortuous, but no significant disease. LEFT CIRCUMFLEX: Moderate- to large-sized vessel. No significant disease throughout. It supplies 1 major obtuse marginal, which has 20 percent disease in the ostial portion. It also supplies a left PDA with no significant disease. RIGHT CORONARY ARTERY: Small, nondominant vessel. LVEDP 11. INTERVENTION: Because of the patient's chest pain, abnormal EKG, elevated troponin and possible aborted sudden cardiac , I thought it was reasonable to intervene on the LAD. An EBU 3.5 guide was engaged in left main. The patient was given additional heparin as an anticoagulant. A BMW wire was advanced into the distal portion of the LAD. A compliant balloon (2.75 x 12) was used to predilate the lesion. An Abelardo drug-eluting stent (3 x 15) was then placed over the lesion and inflated. This was postdilated with a noncompliant balloon (3 x 12) to a final size of 3.1 mm. Final angiogram shows a well-opposed stent with no perforations or dissections. The patient was given 81 mg of aspirin as well as Brilinta 180 mg. A radial band was placed over the arteriotomy site for hemostasis. The patient left the microbiology lab technician cardiovascularly stable. INTERVENTIONAL DATA: Vessel: Mid LAD, lesion length 12, pre-NALINI 3, post-NALINI 3, post-stenosis 0. IMPRESSION: 1. Chest pain concerning for coronary insufficiency. 2. Bds-BU-yqjoqkxpm myocardial infarction. 3. Possible aborted sudden cardiac . 4. Coronary artery disease, status post [place] drug-eluting stent (3 x 15) to the mid LAD. 5. Tobacco abuse. RECOMMENDATIONS: 1. Ms. Mcbride presented with chest pain, elevated troponin, an abnormal EKG and possible aborted sudden cardiac , and underwent PCI as above. 2. She will be placed on aspirin and Brilinta therapy. She understands that if refills of Brilinta are too expensive, she will call my office and be changed over to Plavix therapy. 3. She will not be placed on beta ovidio therapy, as her heart rates have been in the 55-60 beats per minute range. This can be reassessed throughout the hospital stay. 4. She will be started on NANCY inhibitor and statin therapy. 5. We will check a 2-D echo to look for overall left ventricular function, cardiac structure and possible valvopathies. 6. She will be watched in the hospital for another 24-48 hours, with a plan to discharge to follow up in the office with me. Thank you for allowing me to see Fallon Reed. If there are any questions, please do not hesitate to call. DO ANGÉLICA Jaimes/NESHA , 12:14 AM , 02:09 AM
[2017-07-27 05:32] LABS: BICARBONATE 27.9 MEQ/L (21.0-32.0); CALCIUM 7.8 MG/DL (8.5-10.1); CREATININE 0.97 MG/DL (0.50-1.00)
[2017-07-27 05:34] LABS: AUTOMATED NEUTROPHIL # 4.8 TH/MM3 (1.8-7.7); BASOPHIL # 0.1 TH/MM3 (0-0.2); BASOPHIL % 0.9 % (0.0-2.0); EOSINOPHIL # 0.2 TH/MM3 (0-0.4); EOSINOPHIL % 2.9 % (0.0-4.0); HEMATOCRIT 37.2 % (35.0-46.0); HEMOGLOBIN 12.5 GM/DL (11.6-15.3); LYMPH % 16.2 % (9.0-44.0); LYMPHOCYTE # 1.1 TH/MM3 (1.0-4.8); MEAN CELL VOLUME 91.1 FL (80.0-100.0); MEAN CORPUSCULAR HEMOGLOBIN 30.6 PG (27.0-34.0); MEAN CORPUSCULAR HGB CONC 33.6 % (32.0-36.0); MEAN PLATELET VOLUME 8.2 FL (7.0-11.0); MONO % 8.8 % (0.0-8.0); MONOCYTE # 0.6 TH/MM3 (0-0.9); NEUT % 71.2 % (16.0-70.0); PLATELET COUNT 316 TH/MM3 (150-450); RED BLOOD COUNT 4.09 MIL/MM3 (4.00-5.30); RED CELL DISTRIBUTION WIDTH 13.8 % (11.6-17.2); WHITE BLOOD COUNT 6.8 TH/MM3 (4.0-11.0)
[2017-07-27] MEDS: LISINOPRIL 5 MG TAB PO SCH (09:52)
[2017-07-27] MEDS: ASPIRIN 81 MG CHEW TAB PO SCH (09:52)
[2017-07-27] MEDS: TICAGRELOR 90 MG TAB PO SCH ×2 (09:53→20:11)
[2017-07-27] MEDS: ACETAMINOPHEN/HYDROcodone 325 MG/5 MG TAB PO PRN ×2 (10:01→20:12)
[2017-07-27] MEDS ORDERED: FUROSEMIDE 40 MG TAB PO ONE (11:45)
[2017-07-27] MEDS ORDERED: ALUMINUM/MAGNESIUM/SIMETH 30 ML CUP PO ONE (12:00)
[2017-07-27] MEDS ORDERED: BUMETANIDE 1 MG/4 ML IV SCH (12:30)
--- NOTE | 2017-07-27 16:03 | HHI.PR ---
Subjective Remarks Patient reported feeling chest soreness 2 out of 10, she is on 2 L nasal cannula O2, Afebrile no other complaint Objective Vitals Vital Signs Date Time Temp Pulse Resp B/P (MAP) Pulse Ox O2 Delivery O2 Flow Rate FiO2 07/27/17 15:00 72 07/27/17 13:00 78 07/27/17 12:00 64 07/27/17 11:17 98.0 74 18 150/90 (110) 94 07/27/17 11:00 68 07/27/17 10:00 66 07/27/17 09:00 78 07/27/17 08:26 98.0 74 18 131/74 (93) 94 07/27/17 08:06 94 Nasal Cannula 2.00 07/27/17 08:00 60 07/27/17 07:00 61 07/27/17 06:00 77 07/27/17 04:58 56 07/27/17 04:00 55 07/27/17 04:00 Nasal Cannula 2.00 07/27/17 04:00 98.1 55 20 124/70 (88) 99 07/27/17 03:00 57 07/27/17 02:00 69 07/27/17 01:00 70 07/27/17 00:00 67 07/27/17 00:00 98.4 67 22 166/84 (111) 98 07/27/17 00:00 Nasal Cannula 2.00 07/26/17 23:00 72 07/26/17 22:00 68 07/26/17 21:00 72 07/26/17 20:00 98.4 65 22 162/70 (100) 100 07/26/17 20:00 Nasal Cannula 2.00 07/26/17 20:00 65 07/26/17 18:00 62 07/26/17 17:06 100 Nasal Cannula 2.00 07/26/17 17:00 64 07/26/17 16:08 14 I/O 07/26/17 07/26/17 07/26/17 07/27/17 07/27/17 07/27/17 07:00 15:00 23:00 07:00 15:00 23:00 Intake Total 56 ml 980 ml 500 ml Output Total 700 ml 800 ml Balance -644 ml 980 ml -300 ml Intake Oral 0 ml 480 ml 500 ml IV Total 56 ml 500 ml Output Urine Total 700 ml 800 ml # Voids 3 # Bowel Movements 0 0 Result Diagram: 07/27/17 0437 07/27/17 0437 Objective Remarks GENERAL: This is a well-nourished, well-developed patient, in no apparent distress. CARDIOVASCULAR: RRR, no gallops, or rubs. RESPIRATORY: Fair air entry bilaterally. No W, R, or R GASTROINTESTINAL: Abdomen soft, non-tender, nondistended. Positive bowel sounds MUSCULOSKELETAL: Extremities without clubbing, cyanosis, or edema. Pedal pulses appreciated NEUROLOGICAL: Awake and alert. Moves all extremity. Normal speech.no focal neurological deficit A/P Assessment and Plan 07/26 going for heart cath today, monitor under telemetry postop, CBC BMP in a.m. 07/27: Status post heart cath with stenting yesterday, continue monitoring, aspirin and Brilinta, appreciate cardiology follow-up 1. NSTEMI Patient reports history of chest pain EKG with possible ischemic changes in V2 and V3 and T-wave inversion in V1 through V6, personally reviewed Initial troponin 0 0.22 Heparin bolus and drip Serial troponins/EKGs Cardiology consulted, appreciate recommendations Aspirin Morphine/nitro 2. Depression/anxiety Continue home Cymbalta 3. Chronic pain Continue home hydrocodone FEN NPO Electrolytes: monitor and replete prn Discharge Planning When cleared by cardiology Amanda Wynne MD July 27, 2017 16:03
--- NOTE | 2017-07-27 19:24 | PD.CARD.PN ---
Subjective Subjective Remarks Patient was seen earlier today, late entry No events overnight, just feels fatigued Has some epigastric pain, points to below the rib cage Objective Medications Current Medications Medications (Trade) Dose Ordered Sig/Toma Route Start Time Stop Time Status Last Admin (Zandraalta Dr) 60 mg HS PO 07/26/17 21:00 07/26/17 19:44 (Seltzer 5-325 Mg) 1 tab Q6H PRN PO 07/25/17 22:00 07/27/17 10:01 (Tylenol) 325 mg Q4H PRN PO 07/26/17 14:00 (Aspirin Chew) 81 mg DAILY PO 07/27/17 09:00 07/27/17 09:52 (Brilinta) 90 mg BID PO 07/26/17 21:00 07/27/17 09:53 (Prinivil) 5 mg DAILY PO 07/27/17 09:00 07/27/17 09:52 (Lipitor) 80 mg HS PO 07/26/17 21:00 07/26/17 19:45 Vital Signs / I&O Vital Signs Date Time Temp Pulse Resp B/P (MAP) Pulse Ox O2 Delivery O2 Flow Rate FiO2 07/27/17 18:00 78 07/27/17 17:00 68 07/27/17 16:00 74 07/27/17 15:00 98.7 69 18 136/78 (97) 96 07/27/17 15:00 72 07/27/17 13:00 78 07/27/17 12:00 64 07/27/17 11:17 98.0 74 18 150/90 (110) 94 07/27/17 11:00 68 07/27/17 10:00 66 07/27/17 09:00 78 07/27/17 08:26 98.0 74 18 131/74 (93) 94 07/27/17 08:06 94 Nasal Cannula 2.00 07/27/17 08:00 60 07/27/17 07:00 61 07/27/17 06:00 77 07/27/17 04:58 56 07/27/17 04:00 55 07/27/17 04:00 Nasal Cannula 2.00 07/27/17 04:00 98.1 55 20 124/70 (88) 99 07/27/17 03:00 57 07/27/17 02:00 69 07/27/17 01:00 70 07/27/17 00:00 67 07/27/17 00:00 98.4 67 22 166/84 (111) 98 07/27/17 00:00 Nasal Cannula 2.00 07/26/17 23:00 72 07/26/17 22:00 68 07/26/17 21:00 72 07/26/17 20:00 98.4 65 22 162/70 (100) 100 07/26/17 20:00 Nasal Cannula 2.00 07/26/17 20:00 65 I/O 07/26/17 07/26/17 07/26/17 07/27/17 07/27/17 07/27/17 07:00 15:00 23:00 07:00 15:00 23:00 Intake Total 56 ml 980 ml 500 ml 1000 ml Output Total 700 ml 800 ml 1700 ml Balance -644 ml 980 ml -300 ml -700 ml Intake Oral 0 ml 480 ml 500 ml 1000 ml IV Total 56 ml 500 ml Output Urine Total 700 ml 800 ml 1700 ml # Voids 3 # Bowel Movements 0 0 Physical Exam GENERAL: NAD, AAOx3 SKIN: Warm and dry. HEAD: Atraumatic. Normocephalic. EYES: Pupils equal and round. No scleral icterus. No injection or drainage. ENT: No nasal bleeding or discharge. Mucous membranes pink and moist. NECK: Trachea midline. No JVD. CARDIOVASCULAR: Regular rate and rhythm. RESPIRATORY: No accessory muscle use. Clear to auscultation. Breath sounds equal bilaterally. GASTROINTESTINAL: Abdomen soft, non-tender, nondistended. Hepatic and splenic margins not palpable. MUSCULOSKELETAL: Extremities without clubbing, cyanosis, or edema. No obvious deformities. Right radial no hematoma NEUROLOGICAL: Awake and alert. No obvious cranial nerve deficits. Motor grossly within normal limits. Five out of 5 muscle strength in the arms and legs. Normal speech. PSYCHIATRIC: Appropriate mood and affect; insight and judgment normal. Laboratory Laboratory Tests Test 07/27/17 04:37 White Blood Count 6.8 TH/MM3 Red Blood Count 4.09 MIL/MM3 Hemoglobin 12.5 GM/DL Hematocrit 37.2 % Mean Corpuscular Volume 91.1 FL Mean Corpuscular Hemoglobin 30.6 PG Mean Corpuscular Hemoglobin Concent 33.6 % Red Cell Distribution Width 13.8 % Platelet Count 316 TH/MM3 Mean Platelet Volume 8.2 FL Neutrophils (%) (Auto) 71.2 % Lymphocytes (%) (Auto) 16.2 % Monocytes (%) (Auto) 8.8 % Eosinophils (%) (Auto) 2.9 % Basophils (%) (Auto) 0.9 % Neutrophils # (Auto) 4.8 TH/MM3 Lymphocytes # (Auto) 1.1 TH/MM3 Monocytes # (Auto) 0.6 TH/MM3 Eosinophils # (Auto) 0.2 TH/MM3 Basophils # (Auto) 0.1 TH/MM3 CBC Comment DIFF FINAL Differential Comment Blood Urea Nitrogen 18 MG/DL Creatinine 0.97 MG/DL Random Glucose 99 MG/DL Calcium Level 7.8 MG/DL Sodium Level 140 MEQ/L Potassium Level 3.7 MEQ/L Chloride Level 104 MEQ/L Carbon Dioxide Level 27.9 MEQ/L Anion Gap 8 MEQ/L Estimat Glomerular Filtration Rate 56 ML/MIN Assessment and Plan Problem List: (1) CAD (coronary artery disease) ICD Codes: I25.10 - Atherosclerotic heart disease of [place] coronary artery without angina pectoris (2) Syncope and collapse ICD Codes: R55 - Syncope and collapse (3) NSTEMI (non-ST elevated myocardial infarction) ICD Codes: I21.4 - Non-ST elevation (NSTEMI) myocardial infarction Status: Acute Assessment and Plan 1) CAD/NSTEMI s/p SAIGE to LAD 2) Tobacco abuse Spoke to her for greater than 3 minutes about tobacco cessation, plans on quitting 3) Syncope Possible aborted sudden cardiac due to ischemia 4) 2D echo pending 5) SOB Mild decreased breath sounds, Lasix x1 6) Epigastric Hx of GERD, attempt Joe Jose DO July 27, 2017 19:24
[2017-07-27] MEDS: DULoxetine HCl DR 60 MG CAP PO SCH (20:12)
[2017-07-27] MEDS: ATORVASTATIN 80 MG TAB PO SCH (20:12)
[2017-07-28] VITALS (18 sets, daily range): BP systolic 124–136; BP diastolic 70–82; PULSE 55–84; RESP 16–18; TEMP 98–98.8; O2SAT 96–98
[2017-07-28] MEDS: ACETAMINOPHEN/HYDROcodone 325 MG/5 MG TAB PO PRN (03:30)
[2017-07-28 08:09] LABS: HEMATOCRIT 38.6 % (35.0-46.0); HEMOGLOBIN 12.9 GM/DL (11.6-15.3); MEAN CELL VOLUME 91.3 FL (80.0-100.0); MEAN CORPUSCULAR HEMOGLOBIN 30.4 PG (27.0-34.0); MEAN CORPUSCULAR HGB CONC 33.3 % (32.0-36.0); MEAN PLATELET VOLUME 7.9 FL (7.0-11.0); PLATELET COUNT 320 TH/MM3 (150-450); RED BLOOD COUNT 4.23 MIL/MM3 (4.00-5.30); RED CELL DISTRIBUTION WIDTH 13.8 % (11.6-17.2); WHITE BLOOD COUNT 7.2 TH/MM3 (4.0-11.0)
[2017-07-28] MEDS: LISINOPRIL 5 MG TAB PO SCH (08:22)
[2017-07-28] MEDS: TICAGRELOR 90 MG TAB PO SCH ×2 (08:22→18:31)
[2017-07-28] MEDS: ASPIRIN 81 MG CHEW TAB PO SCH (08:22)
--- NOTE | 2017-07-28 12:06 | PD.CARD.PN ---
Subjective Subjective Remarks No events overnight Was feeling well this morning then she ate and her stomach is bothering her Still mildly SOB with up and moving Objective Medications Current Medications Medications (Trade) Dose Ordered Sig/Toma Route Start Time Stop Time Status Last Admin (Cymbalta Dr) 60 mg HS PO 07/26/17 21:00 07/27/17 20:12 ([place] 5-325 Mg) 1 tab Q6H PRN PO 07/25/17 22:00 07/28/17 03:30 (Tylenol) 325 mg Q4H PRN PO 07/26/17 14:00 (Aspirin Chew) 81 mg DAILY PO 07/27/17 09:00 07/28/17 08:22 (Brilinta) 90 mg BID PO 07/26/17 21:00 07/28/17 08:22 (Prinivil) 5 mg DAILY PO 07/27/17 09:00 07/28/17 08:22 (Lipitor) 80 mg HS PO 07/26/17 21:00 07/27/17 20:12 Vital Signs / I&O Vital Signs Date Time Temp Pulse Resp B/P (MAP) Pulse Ox O2 Delivery O2 Flow Rate FiO2 07/28/17 07:05 98.8 77 18 136/70 (92) 98 07/28/17 07:05 62 07/28/17 07:05 98 07/28/17 06:00 66 07/28/17 05:00 63 07/28/17 04:00 98.5 60 18 124/72 (89) 96 07/28/17 04:00 60 07/28/17 04:00 Nasal Cannula 2.00 07/28/17 03:00 57 07/28/17 02:00 62 07/28/17 01:00 55 07/28/17 00:00 62 07/27/17 23:54 Nasal Cannula 2.00 07/27/17 23:54 98.3 62 18 140/70 (93) 98 07/27/17 23:00 53 07/27/17 22:00 60 07/27/17 21:00 58 07/27/17 20:00 60 07/27/17 20:00 98.0 60 20 125/70 (88) 97 07/27/17 20:00 Nasal Cannula 2.00 07/27/17 18:00 78 07/27/17 17:00 68 07/27/17 16:00 74 07/27/17 15:00 98.7 69 18 136/78 (97) 96 07/27/17 15:00 72 07/27/17 13:00 78 I/O 07/27/17 07/27/17 07/27/17 07/28/17 07/28/17 07/28/17 07:00 15:00 23:00 07:00 15:00 23:00 Intake Total 500 ml 1000 ml 480 ml Output Total 800 ml 1700 ml 1200 ml Balance -300 ml -700 ml -720 ml Intake Oral 500 ml 1000 ml 480 ml Output Urine Total 800 ml 1700 ml 1200 ml # Bowel Movements 0 0 Physical Exam GENERAL: NAD, AAOx3 SKIN: Warm and dry. HEAD: Atraumatic. Normocephalic. EYES: Pupils equal and round. No scleral icterus. No injection or drainage. ENT: No nasal bleeding or discharge. Mucous membranes pink and moist. NECK: Trachea midline. No JVD. CARDIOVASCULAR: Regular rate and rhythm. RESPIRATORY: No accessory muscle use. Clear to auscultation. Breath sounds equal bilaterally. GASTROINTESTINAL: Abdomen soft, non-tender, nondistended. Hepatic and splenic margins not palpable. MUSCULOSKELETAL: Extremities without clubbing, cyanosis, or edema. No obvious deformities. Right radial no hematoma NEUROLOGICAL: Awake and alert. No obvious cranial nerve deficits. Motor grossly within normal limits. Five out of 5 muscle strength in the arms and legs. Normal speech. PSYCHIATRIC: Appropriate mood and affect; insight and judgment normal. Laboratory Laboratory Tests Test 07/28/17 06:43 White Blood Count 7.2 TH/MM3 Red Blood Count 4.23 MIL/MM3 Hemoglobin 12.9 GM/DL Hematocrit 38.6 % Mean Corpuscular Volume 91.3 FL Mean Corpuscular Hemoglobin 30.4 PG Mean Corpuscular Hemoglobin Concent 33.3 % Red Cell Distribution Width 13.8 % Platelet Count 320 TH/MM3 Mean Platelet Volume 7.9 FL Assessment and Plan Problem List: (1) CAD (coronary artery disease) ICD Codes: I25.10 - Atherosclerotic heart disease of [place] coronary artery without angina pectoris (2) Syncope and collapse ICD Codes: R55 - Syncope and collapse (3) NSTEMI (non-ST elevated myocardial infarction) ICD Codes: I21.4 - Non-ST elevation (NSTEMI) myocardial infarction Status: Acute Assessment and Plan 1) CAD/NSTEMI s/p SAIGE to LAD ASA/Brilinta/NANCY-I/Lipitor No BB, heart rates 55-65 2) Tobacco abuse Spoke to her for greater than 3 minutes about tobacco cessation, plans on quitting 3) Syncope Possible aborted sudden cardiac due to ischemia 4) 2D echo pending 5) SOB Await echo 6) Epigastric pain 7) Await results of echo, if no problems then can be discharged home Joe Allen DO July 28, 2017 12:06
--- NOTE | 2017-07-28 15:10 | ECHRPT ---
Indication: NSTEMI CONCLUSIONS Normal left ventricular size. Moderate concentric left ventricular hypertrophy. The left atrial size is lkgz-[id number]-pizjlkrlgk dilated. The right atrial size is jwth-dx-yzgefwaszj dilated. Calcification of the anterior mitral valve leaflet. Mild mitral valve regurgitation. There is trace tricuspid valve regurgitation. The estimated pulmonary arterial pressure is 40.7 mmHg. BP: / HR: Rhythm: Sinus MEASUREMENTS (Male / Female) Normal Values Technical Quality:Fair 2D ECHO LV Diastolic Diameter PLAX 4.5 cm 4.2 - 5.9 / 3.9 - 5.3 cm LV Systolic Diameter PLAX 3.3 cm IVS Diastolic Thickness 0.9 cm 0.6 - 1.0 / 0.6 - 0.9 cm LVPW Diastolic Thickness 0.8 cm 0.6 - 1.0 / 0.6 - 0.9 cm LV Relative Wall Thickness 0.4 RV Internal Dim ED PLAX 3.2 cm LVOT Diameter 2.0 cm LA Systolic Diameter LX 3.0 cm 3.0 - 4.0 / 2.7 - 3.8 cm M-MODE Aortic Root Diameter MM 2.5 cm LA Systolic Diameter MM 4.4 cm LA Ao Ratio MM 1.8 AV Cusp Separation MM 1.7 cm DOPPLER AV Peak Velocity 133.0 cm/s AV Peak Gradient 7.1 mmHg LVOT Peak Velocity 102.0 cm/s LVOT Peak Gradient 4.2 mmHg AV Area Cont Eq pk 2.4 cm MV Area PHT 2.5 cm Mitral E Point Velocity 65.6 cm/s Mitral A Point Velocity 70.6 cm/s Mitral E to A Ratio 0.9 LV E' Lateral Velocity 4.8 cm/s Mitral E to LV E' Lateral Ratio 13.5 LV E' Septal Velocity 5.9 cm/s Mitral E to LV E' Septal Ratio 11.0 TR Peak Velocity 277.0 cm/s TR Peak Gradient 30.7 mmHg Right Atrial Pressure 10.0 mmHg Pulmonary Artery Systolic Pressu 40.7 mmHg Right Ventricular Systolic Press 40.7 mmHg FINDINGS LEFT VENTRICLE Normal left ventricular size. Moderate concentric left ventricular hypertrophy. The left ventricular systolic function is normal with an estimated ejection fraction in the range of 60-65%. RIGHT VENTRICLE Normal right ventricular size and systolic function. LEFT ATRIUM The left atrial size is mymw-bu-ejkormezvo dilated. RIGHT ATRIUM The right atrial size is atxq-pf-pqykpomlri dilated. ATRIAL SEPTUM Normal atrial septal thickness without atrial level shunting by limited color doppler interrogation. AORTA The aortic root and proximal ascending aorta are normal in size on limited imaging. MITRAL VALVE Calcification of the anterior mitral valve leaflet. Mild mitral valve regurgitation. AORTIC VALVE Trileaflet aortic valve. No aortic valve stenosis or regurgitation. TRICUSPID VALVE Structurally normal tricuspid valve. There is trace tricuspid valve regurgitation. The estimated pulmonary arterial pressure is 40.7 mmHg. PULMONARY VALVE No pulmonary valve regurgitation or stenosis. VESSELS The inferior vena cava is normal in size. PERICARDIUM No pericardial effusion. Denis Keith MD, FACC (Electronically Signed) Final Date:28 Jul 2017 15:09
[2017-07-28] MEDS ORDERED: BRIL90TA PO (17:29)
[2017-07-28] MEDS ORDERED: ASPI81 PO (17:29)
[2017-07-28] MEDS ORDERED: ATOR80TA45 PO (17:29)
[2017-07-28] MEDS ORDERED: LISI-519 PO (17:29)
--- NOTE | 2017-07-28 17:41 | HHI.DS ---
Discharge Summary Admission Date July 25, 2017 at 19:35 Discharge Date: July 28, 2017 Admitting Diagnosis NSTEMI, syncope (1) CAD (coronary artery disease) ICD Code: I25.10 - Atherosclerotic heart disease of [place] coronary artery without angina pectoris (2) NSTEMI (non-ST elevated myocardial infarction) ICD Code: I21.4 - Non-ST elevation (NSTEMI) myocardial infarction Status: Acute (3) Syncope, near ICD Code: R55 - Syncope and collapse Status: Acute Procedures Heart cath with stenting Brief History - From Admission 71-year-old female with past medical history significant for osteoarthritis, chronic pain and depression/anxiety presents the emergency department for the evaluation of a syncopal episode with seizure-like activity. The patient reports earlier today she had some chest pain and she took an aspirin and a Prilosec because she was unsure if it was cardiac or GERD. She states she did not feel better and was walking to lay down when she suddenly collapsed. Her partner was following her and he states that her head "snapped backwards" her jaw locked and she had loss of bladder continence. The partner states that he could not find a heartbeat and he performed CPR for an unknown amount of time. He continued CPR until EMS arrived. Upon their arrival, EMS reports that the patient was conscious and talking. Patient denies any associated shortness of breath. She denies abdominal pain. No nausea/vomiting/diarrhea. No lateralizing signs/symptoms. CBC/BMP: 07/28/17 0643 07/27/17 0437 Significant Findings Laboratory Tests Test 07/26/17 01:12 07/26/17 05:35 07/26/17 06:42 07/26/17 12:28 Activated Partial Thromboplast Time 39.4 SEC (24.3-30.1) 38.4 SEC (24.3-30.1) Troponin I 0.40 NG/ML (0.02-0.05) 0.26 NG/ML (0.02-0.05) Test 07/27/17 04:37 07/28/17 06:43 Neutrophils (%) (Auto) 71.2 % (16.0-70.0) Monocytes (%) (Auto) 8.8 % (0.0-8.0) Calcium Level 7.8 MG/DL (8.5-10.1) Estimat Glomerular Filtration Rate 56 ML/MIN (>89) PE at Discharge GENERAL: This is a well-nourished, well-developed patient, in no apparent distress. CARDIOVASCULAR: RRR, no gallops, or rubs. RESPIRATORY: Fair air entry bilaterally. No W, R, or R GASTROINTESTINAL: Abdomen soft, non-tender, nondistended. Positive bowel sounds MUSCULOSKELETAL: Extremities without clubbing, cyanosis, or edema. Pedal pulses appreciated NEUROLOGICAL: Awake and alert. Moves all extremity. Normal speech.no focal neurological deficit Hospital Course 71 years old male admitted with non-STEMI coronary artery disease is status post heart cath with stenting to the LAD started on aspirin Brilinta NANCY inhibitor and Lipitor, cardiology followed cleared patient for discharge, 2D echo with 60-65% EF, extended counseling about tobacco abstinence on a day for discharge. Adiv-ex-vvpm encounter performed with the patient on discharge day, as well as physical exam, summary of hospitalization course and postdischarge plan has been D/W the patient. D/W nurse D/W spring encaser. Discharge medications reviewed and printed and signed, post discharge follow up visit with PCP and other specialist as well as Brief hospital course and discharge summary has been placed. Pt Condition on Discharge: Fair Discharge Disposition: Discharge Home Discharge Time: > 30 minutes Discharge Instructions DIET: Follow Instructions for: Heart Healthy Diet Activities you can perform: Weight Bearing as Nuris Follow up Referrals: Cardiology - 1 Week with Joe Allen DO New Medications: Aspirin (Tgt Aspirin) 81 Mg Chw 81 MG PO DAILY for cad, #30 EA Atorvastatin (Atorvastatin) 80 Mg Tab 80 MG PO HS for cad, #30 TAB Lisinopril (Lisinopril) 5 Mg Tab 5 MG PO DAILY for htn, #30 TAB Ticagrelor (Brilinta) 90 Mg Tab 90 MG PO BID for cad, #60 TAB Continued Medications: Diphenoxylate-Atropine (Lomotil) 2.5-0.025 Mg Tab 2 TAB PO Q6H PRN for DIARRHEA, TAB [address] (Cymbalta DR) 60 Mg Capdr 60 MG PO HS, #30 CAP 0 Refills Amanda Wynne MD July 28, 2017 17:41
[2017-07-28] MEDS: DULoxetine HCl DR 60 MG CAP PO SCH (18:31)
[2017-07-28] MEDS: ATORVASTATIN 80 MG TAB PO SCH (18:31)
[2017-07-28] MEDS ORDERED: IOHEXOL 350 MG/ML 100 ML BTL (for Cath Lab) OTHER ONE (18:41)
[2017-07-28] MEDS ORDERED: IOHEXOL 350 MG/ML 50 ML BTL (for Cath Lab) OTHER ONE (18:41)
== END 2017-07-28 18:42 | disposition home or self-care (01) | DRG 247 ==
LOC: NEPC 16:28 → NEDA 19:35 → HCIS 22:15
PROVIDERS: ADMIT Hospitalist; ATTEND Hospitalist
PROC: 4A023N7 Measurement of Cardiac Sampling and Pressure, Left Heart, Percutaneous Approach (ICD-10-PCS; 2017-07-26)
PROC: B2111ZZ Fluoroscopy of Multiple Coronary Arteries using Low Osmolar Contrast (ICD-10-PCS; 2017-07-26)
PROC: 027034Z Dilation of Coronary Artery, One Artery with Drug-eluting Intraluminal Device, Percutaneous Approach (ICD-10-PCS; principal; 2017-07-26 12:30)
DX: I21.4 Non-ST elevation (NSTEMI) myocardial infarction (principal); I25.10 Atherosclerotic heart disease of native coronary artery without angina pectoris; F32.9 Major depressive disorder, single episode, unspecified; R55 Syncope and collapse; F17.210 Nicotine dependence, cigarettes, uncomplicated; F41.9 Anxiety disorder, unspecified; G89.29 Other chronic pain; K58.9 Irritable bowel syndrome, unspecified; K21.9 Gastro-esophageal reflux disease without esophagitis; M19.90 Unspecified osteoarthritis, unspecified site; Z91.040 Latex allergy status
CPT/HCPCS: 70450; 71045; 80048; 80053; 82550; 83690; 83735; 84443; 84484; 85002; 85025; 85027; 85610; 85730; 92928; 93005; 93306; 93458; 95819; 96360; 99152; 99153; C1725; C1769; C1874; C1887; C1893; J1644; J2250; J2270; J3010; J7040; Q9967